=== PATIENT | female | born 1995 | race Caucasian/White ===

== ENCOUNTER → 2016-10-05 | Outpatient (CLI) | payer BC, OTHER ==
[2016-10-10 00:06] LABS: ANTI TETANUS ANTIBODY 0.61 IU/mL (<0.10); POLIO ANTIBODIES/POLIOMYELITIS 1:16 (Neg:<1:8)
== END ==
LOC: M SMT 13:01
PROVIDERS: ATTEND Physician Assistant
DX: Z02.0 Encounter for examination for admission to educational institution (principal)

== ENCOUNTER → 2017-09-20 | Outpatient (REF) | payer BC, OTHER | LOC: M LAB REF 12:42 | DX: R21 Rash and other nonspecific skin eruption (principal) | CPT/HCPCS: 87186 ==

== ENCOUNTER → 2018-01-07 | Outpatient (REF) | payer OTHER ==
[2018-01-07 12:48] LABS: MISCELLANEOUS TEST LAB See Separate Report
[2018-01-14 08:09] LABS: DENGUE FEVER IgG AB <1.00 ISR (<1.65); DENGUE FEVER IgM AB 1.02 ISR (<1.65)
== END ==
LOC: M LAB REF 11:45
DX: Z11.59 Encounter for screening for other viral diseases (principal)

== ENCOUNTER → 2019-05-26 | Outpatient (REF) | payer OTHER ==
[2019-05-27 10:19] LABS: RUBELLA IgG QUALITATIVE IMMUNE (IMMUNE)
[2019-05-29 08:49] LABS: RUBEOLA IgG ANTIBODY 24.8 AU/mL (Immune >16.4)
== END ==
LOC: M LAB REF 12:42
PROVIDERS: ATTEND Nurse Practitioner Adult Health
DX: Z02.0 Encounter for examination for admission to educational institution (principal); Z11.59 Encounter for screening for other viral diseases